=== PATIENT | female | born 1970 | race American Indian/Alaskan Native ===

== ENCOUNTER 2018-01-01 05:06 | Emergency (ER) | payer MEDICARE ==
[2018-01-01 06:15] VITALS: BP 148/98
--- NOTE | 2018-01-01 06:54 | XRay Report ---
FINAL REPORT EXAM: XR CHEST ROUTINE 2V HISTORY: shortness of breath TECHNIQUE: PA and lateral views of the chest were submitted. FINDINGS: The heart is mildly enlarged. The thoracic aorta is mildly tortuous. The lungs are not congested. There are no localized infiltrates or effusions. The skeletal structures are well-maintained. IMPRESSION: Mild cardiomegaly. No acute process in the chest
[2018-01-01 07:30] LABS: BUN/Creatinine Ratio 17; Blood Urea Nitrogen 10 mg/dL (7-17); Calcium 8.7 mg/dL (8.4-10.2); Hemolysis Index 6
[2018-01-01 07:52] LABS: Basophils # (Auto) 0.1 K/mm3 (0.0-0.1); Basophils % (Auto) 1.4 % (0.0-1.8); Eosinophils # (Auto) 0.2 K/mm3 (0.0-0.4); Eosinophils % (Auto) 2.1 % (0.0-4.3); Hematocrit 33.9 % (30.3-42.9); Hemoglobin 11.1 gm/dl (10.1-14.3); Lymphocytes # (Auto) 1.4 K/mm3 (1.2-5.4); Lymphocytes % (Auto) 17.2 % (13.4-35.0); Mean Corpuscular HGB Conc 33 % (30-34); Mean Corpuscular Hemoglobin 26 pg (28-32); Mean Corpuscular Volume 80 fl (79-97); Monocytes % (Auto) 12.1 % (0.0-7.3); Platelet Count 367 K/mm3 (140-440); Red Blood Count 4.25 M/mm3 (3.65-5.03); Red Cell Distribution Width 16.5 % (13.2-15.2)
== END 2018-01-01 11:05 | disposition left against medical advice (07) ==
LOC: ED 05:06
DX: R07.9 Chest pain, unspecified (principal); Z53.21 Procedure and treatment not carried out due to patient leaving prior to being seen by health care provider
CPT/HCPCS: 36415; 71046; 80048; 84484; 85025; 93005; 93010

== ENCOUNTER 2019-09-30 09:49 | Outpatient (CLI) | payer OTHER ==
--- NOTE | 2019-09-30 11:27 | XRay Report ---
LUMBOSACRAL SPINE, 3 VIEWS INDICATION: RIGHT SIDED WEAKNESS,CONGESTIVE HEART FAILURE. COMPARISON: None. IMPRESSION: Normal alignment and bone mineralization. Mild discogenic disc disease and facet arthro keron are noted at L3-4, L4-5 and L5-S1. The sacrum and SI joints are unremarkable. No acute osseous or soft tissue abnormality. Signer Name: Desmond Alexandra Jr, MD Signed: 09/30/2019 11:23 AM Workstation Name: [id number]
== END 2019-09-30 09:50 | disposition home or self-care (01) ==
LOC: XRAY 09:49
PROVIDERS: ATTEND Internal Medicine
DX: M51.86 Other intervertebral disc disorders, lumbar region (principal); R53.1 Weakness; G43.909 Migraine, unspecified, not intractable, without status migrainosus; I11.0 Hypertensive heart disease with heart failure; I50.9 Heart failure, unspecified; I25.10 Atherosclerotic heart disease of native coronary artery without angina pectoris; Z98.890 Other specified postprocedural states; Z98.51 Tubal ligation status; G62.9 Polyneuropathy, unspecified
CPT/HCPCS: 72100

== ENCOUNTER 2019-12-07 17:29 | Observation (INO) | payer MEDICARE ==
--- NOTE | 2019-12-07 17:56 | Event Note ---
ED Screening Note Date of service: 12/07/19 Time: 17:53 ED Screening Note: 49 y/o female comes for SOB, Chest pain. Patient reports that she started with right leg swelling and pain was seen by her PCP and was started on lasix no decreased in swelling. And now having CP and SOB. History of CAD, CHF, CVA times 2. This initial assessment/diagnostic orders/clinical plan/treatment(s) is/are subject to change based on patients health status, clinical progression and re- assessment by fellow clinical providers in the ED. Further treatment and workup at subsequent clinical providers discretion. Patient/guardian urged not to elope from the ED as their condition may be serious if not clinically assessed and managed. Initial orders include:
[2019-12-07 18:44] LABS: Basophils # (Auto) 0.1 K/mm3 (0.0-0.1); Eosinophils # (Auto) 0.2 K/mm3 (0.0-0.4); Eosinophils % (Auto) 1.6 % (0.0-4.3); Hematocrit 39.2 % (30.3-42.9); Lymphocytes # (Auto) 2.5 K/mm3 (1.2-5.4); Lymphocytes % (Auto) 26.4 % (13.4-35.0); Mean Corpuscular HGB Conc 33 % (30-34); Mean Corpuscular Volume 88 fl (79-97); Monocytes # (Auto) 1.2 K/mm3 (0.0-0.8); Monocytes % (Auto) 12.3 % (0.0-7.3); Platelet Count 354 K/mm3 (140-440); Red Blood Count 4.44 M/mm3 (3.65-5.03); Red Cell Distribution Width 13.7 % (13.2-15.2)
[2019-12-07] MEDS ORDERED: traMADol 50 MG TAB PO ONE (18:46)
--- NOTE | 2019-12-07 18:51 | XRay Report ---
CHEST 1 VIEW INDICATION / CLINICAL INFORMATION: MAIN: chest pain sob since this evening. COMPARISON: 03/14/2008 FINDINGS: SUPPORT DEVICES: None. HEART / MEDIASTINUM: No significant abnormality. LUNGS / PLEURA: No significant pulmonary or pleural abnormality. No pneumothorax. No interstitial pul monary edema. ADDITIONAL FINDINGS: No significant additional findings. IMPRESSION: 1. No acute findings. No interval change. Signer Name: Livier Rivas MD Signed: 12/07/2019 6:47 PM Workstation Name: [id number]
[2019-12-07 19:08] LABS: Alanine Aminotransferase 19 units/L (7-56); Albumin 4.1 g/dL (3.9-5); BUN/Creatinine Ratio 10; Blood Urea Nitrogen 8 mg/dL (7-17); Calcium 9.4 mg/dL (8.4-10.2); Hemolysis Index 24
--- NOTE | 2019-12-07 19:14 | Emergency Department Report ---
ED Chest Pain HPI - General Chief Complaint: Chest Pain Stated Complaint: CHEST PAIN/RT LEG NUMBNESS Time Seen by Provider: 12/07/19 17:48 Source: patient Mode of arrival: Ambulatory Limitations: No Limitations - History of Present Illness Initial Comments: 49-year-old female presents to the emergency department with complaint of some pain just under her left breast in the chest that has been going on since about 4 AM. It is associated with some shortness of breath that worsens with exertion, worsened with coughing, and she has orthopnea. The patient also complains of bilateral lower extremity swelling with right greater than left and she has pain in the right leg. The coughing has been going on for one month. The leg swelling is also been going on for the past month. She has a past medical history of CHF, CVA with right-sided residual weakness, migraine headaches, hypertension, neuropathy, and a history of DVT from this past summer. She has not currently on any blood thinners. Her box printer used to be Dr. Santoro and now she is being referred to a Dr. Ruben Birch. No recent travel or sick contacts at home. The patient has taken some sublingual nitroglycerin for her pain. She was recently taken off of a previous diuretic and was placed on Lasix. - Related Data Previous Rx's Medication Instructions Recorded Last Taken Type Losartan [Cozaar] 100 mg PO QDAY #30 tablet 10/26/14 Unknown Rx Metoprolol [Lopressor TAB] 75 mg PO BID #60 tablet 10/26/14 Unknown Rx Sennosides [Senna Lax] 8.6 mg PO DAILY PRN #14 tablet 10/26/14 Unknown Rx amLODIPine 10 mg PO DAILY #30 tablet 10/26/14 Unknown Rx hydrALAZINE [Apresoline TAB] 25 mg PO Q8HR #90 tablet 10/26/14 Unknown Rx oxyCODONE /ACETAMINOPHEN [Percocet 2 tab PO Q6H PRN #20 tablet 10/26/14 Unknown Rx 5/325 mg] Allergies Allergy/AdvReac Type Severity Reaction Status Date / Time hydrocodone Allergy Unknown Verified 10/15/14 19:18 Heart Score - HEART Score History: Moderately suspicious EKG: Normal Age: 45-65 Risk factors: > 3 risk factors or hx of atherosclerotic disease Troponin: < normal limit HEART Score: 4 - Critical Actions Critical Actions: 4-6 pts:12-16.6% risk of adverse cardiac event. Should be admitted ED Review of Systems ROS: Stated complaint: CHEST PAIN/RT LEG NUMBNESS Other details as noted in HPI Comment: All other systems reviewed and negative Constitutional: denies: chills, fever Eyes: denies: eye pain, vision change ENT: denies: ear pain, throat pain Respiratory: cough, orthopnea, shortness of breath, SOB with exertion Cardiovascular: chest pain, edema Gastrointestinal: denies: abdominal pain, vomiting Genitourinary: denies: dysuria, discharge Musculoskeletal: arthralgia, myalgia. denies: back pain Skin: denies: rash, lesions Neurological: denies: headache, weakness ED Past Medical Hx - Past Medical History Previous Medical History?: Yes Hx Hypertension: Yes Hx CVA: Yes (x2) Hx Heart Attack/AMI: No Hx Congestive Heart Failure: Yes Hx Diabetes: No Hx Liver Disease: No Hx Renal Disease: No Hx Sickle Cell Disease: No Hx Headaches / Migraines: Yes Hx Seizures: No Hx Psychiatric Treatment: Yes (depression) Hx Asthma: No Hx COPD: No Additional medical history: Neuropathy - Surgical History Additional Surgical History: Spinal Stenosis - Social History Smoking Status: Never Smoker Substance Use Type: None - Medications Home Medications: Home Medications Medication Instructions Recorded Confirmed Last Taken Type Losartan [Cozaar] 100 mg PO QDAY #30 tablet 10/26/14 Unknown Rx Metoprolol [Lopressor TAB] 75 mg PO BID #60 tablet 10/26/14 Unknown Rx Sennosides [Senna Lax] 8.6 mg PO DAILY PRN #14 tablet 10/26/14 Unknown Rx amLODIPine 10 mg PO DAILY #30 tablet 10/26/14 Unknown Rx hydrALAZINE [Apresoline TAB] 25 mg PO Q8HR #90 tablet 10/26/14 Unknown Rx oxyCODONE /ACETAMINOPHEN [Percocet 2 tab PO Q6H PRN #20 tablet 10/26/14 Unknown Rx 5/325 mg] ED Physical Exam - General Limitations: No Limitations - Other Other exam information: GENERAL: The patient is well-developed well-nourished. HEENT: Normocephalic. Atraumatic. Patient has moist mucous membranes. EYES: Extraocular motions are intact. NECK: Supple. Trachea is midline. CHEST/LUNGS: Clear to auscultation. There is no respiratory distress noted. HEART/CARDIOVASCULAR: Regular. There is no tachycardia. There is no murmur. ABDOMEN: Abdomen is soft, nontender. Patient has normal bowel sounds. There is no abdominal distention. SKIN:Skin is warm and dry. 2+ pitting edema to the bilateral lower extremities. NEURO: The patient is awake, alert, and oriented. The patient is cooperative. The patient has no focal neurologic deficits. Normal speech. MUSCULOSKELETAL: There is reproducible tenderness to palpation to the right lower leg. There is no limitation range of motion. ED Course Vital Signs 12/07/19 12/07/19 12/07/19 18:08 18:15 18:30 Pulse Rate 100 H 95 H Respiratory 23 19 Rate Blood Pressure 136/89 136/89 O2 Sat by Pulse 96 97 97 Oximetry 12/07/19 12/07/19 12/07/19 18:46 19:00 19:16 Pulse Rate 91 H 85 81 Respiratory 21 19 17 Rate Blood Pressure 136/89 136/89 136/89 O2 Sat by Pulse 97 98 99 Oximetry 12/07/19 12/07/19 12/07/19 19:30 19:34 19:45 Pulse Rate 88 92 H Respiratory 34 H 20 14 Rate Blood Pressure 134/85 149/74 O2 Sat by Pulse 96 99 96 Oximetry 12/07/19 12/07/19 12/07/19 20:00 20:15 20:30 Pulse Rate 90 82 79 Respiratory 18 17 21 Rate Blood Pressure 135/82 153/81 127/73 O2 Sat by Pulse 99 99 98 Oximetry 12/07/19 12/07/19 12/07/19 20:46 21:00 21:15 Pulse Rate 90 78 93 H Respiratory 18 20 19 Rate Blood Pressure 153/81 120/64 120/64 O2 Sat by Pulse 100 98 100 Oximetry 12/07/19 12/07/19 12/07/19 21:31 21:45 22:01 Pulse Rate 75 81 74 Respiratory 19 17 18 Rate Blood Pressure 120/64 120/64 120/64 O2 Sat by Pulse 100 100 100 Oximetry 12/07/19 12/07/19 12/07/19 22:15 22:31 22:45 Pulse Rate 75 78 68 Respiratory 17 15 19 Rate Blood Pressure 120/64 120/64 120/64 O2 Sat by Pulse 99 99 100 Oximetry ERICH score - Erich Score Age > 65: (0) No Aspirin use within the Past 7 Days: (0) No 3 or more CAD Risk Factors: (1) Yes 2 or more Angina events in past 24 hrs: (1) Yes Known CAD with more than 50% Stenosis: (0) No Elevated Cardiac Markers: (0) No ST Deviation Greater than 0.5mm: (0) No ERICH Score: 2 ED Medical Decision Making - Lab Data Result diagrams: 12/07/19 18:25 12/07/19 18:25 - EKG Data -: EKG Interpreted by Me EKG shows normal: sinus rhythm, axis, intervals, QRS complexes, ST-T waves Rate: normal - EKG Data When compared to previous EKG there are: no significant change Interpretation: unchanged when compared t (01/01/18) - Radiology Data Radiology results: report reviewed, image reviewed interpreted by me: Chest x-ray does not show any pleural effusions, pneumonia, pneumothorax, focal consolidation, or any other acute process. CTA CHEST WITH IV CONTRAST INDICATION: CP, elevated dimer. TECHNIQUE: Axial CT images were obtained through the chest after injection of 100 cc Omnipaque 350 IV contrast. 3 plane MIP reconstructions were produced. All CT scans at this location are performed using CT dose reduction for ALARA by means of automated exposure control. COMPARISON: None available. FINDINGS: Exam is slightly degraded by respiratory motion artifact. PULMONARY ARTERIES: No pulmonary emboli. THORACIC AORTA: No acute abnormality. HEART: Normal. CORONARY ARTERIES: No significant calcification. PLEURA: No pleural effusion. No pneumothorax. LYMPH NODES: No significant adenopathy. LUNGS: No acute air space or interstitial disease. ADDITIONAL FINDINGS: None. UPPER ABDOMEN: No acute findings. SKELETAL STRUCTURES: No significant osseous abnormality. IMPRESSION: 1. No CT evidence for pulmonary embolism. 2. No acute findings. - Medical Decision Making This patient presents to the emergency department with some left-sided chest pain that started since 4 AM this morning. She has some shortness of breath, lower extremity swelling with right greater than left and some right lower extremity pain with a history of DVT. The patients labs have been mostly unremarkable except for an elevated and equivocal D-Dimer at about 450. She has a CT angiography of the chest that did not show any PE, dissection or any acute process. She already took multiple SL Nitro prior to arrival and in the ED. Given tramadol and then low dose Morphine without much improvement. The CT angiography of the chest was negative but the patient continues to have some right leg pain with a history of DVT. She was given a dose of Eliquis and a venous Ultrasound was ordered for the morning. The patient will be admitted to the hospital for further evaluation and was accepted for admission by the hospitalist, Dr. Goel. - Differential Diagnosis DVT, PE, [place], CHF Critical Care Time: No Critical care attestation.: If time is entered above; I have spent that time in minutes in the direct care of this critically ill patient, excluding procedure time. ED Disposition Clinical Impression: Acute chest pain, Bilateral lower extremity edema, Right leg pain, History of DVT (deep vein thrombosis) Dyspnea Qualifiers: Dyspnea type: shortness of breath Qualified Code(s): R06.02 - Shortness of breath; R06.00 - Dyspnea, unspecified; R06.01 - Orthopnea Disposition: OP ADMIT IP TO THIS HOSP Is pt being admited?: Yes Condition: Fair Time of Disposition: 23:44
--- NOTE | 2019-12-07 21:11 | Cat Scan Report ---
CTA CHEST WITH IV CONTRAST INDICATION: CP, elevated dimer. TECHNIQUE: Axial CT images were obtained through the chest after injection of 100 cc Omnipaque 350 IV contrast. 3 plane MIP reconstructions were produced. All CT scans at this location are performed using CT dose reduction for ALARA by means of automated exposure control. COMPARISON: None available. FINDINGS: Exam is slightly degraded by respiratory motion artifact. PULMONARY ARTERIES: No pulmonary emboli. THORACIC AORTA: No acute abnormality. HEART: Normal. CORONARY ARTERIES: No significant calcification. PLEURA: No pleural effusion. No pneumothorax. LYMPH NODES: No significant adenopathy. LUNGS: No acute air space or interstitial disease. ADDITIONAL FINDINGS: None. UPPER ABDOMEN: No acute findings. SKELETAL STRUCTURES: No significant osseous abnormality. IMPRESSION: 1. No CT evidence for pulmonary embolism. 2. No acute findings. Signer Name: Byron Gross MD Signed: 12/07/2019 9:07 PM Workstation Name: [id number]
[2019-12-07] MEDS ORDERED: APIXABAN 5 MG TAB PO ONE (21:36)
[2019-12-07] MEDS ORDERED: MORPHINE 4 MG/1 ML INJ IV ONE (21:37)
[2019-12-07] MEDS ORDERED: ONDANSETRON 4 MG/2 ML INJ IV ONE (21:38)
[2019-12-08] MEDS ORDERED: NITROGLYCERIN 0.4 MG TAB SUBL SL PRN (00:39)
[2019-12-08] MEDS ORDERED: ONDANSETRON 4 MG/2 ML INJ IV PRN (00:39)
[2019-12-08] MEDS ORDERED: FUROSEMIDE 20 MG TAB PO ONE (02:00)
[2019-12-08] MEDS ORDERED: FUROSEMIDE 40 MG/4 ML INJ IV SCH (06:00)
[2019-12-08 07:27] LABS: Basophils # (Auto) 0.1 K/mm3 (0.0-0.1); Basophils % (Auto) 1.3 % (0.0-1.8); Eosinophils # (Auto) 0.2 K/mm3 (0.0-0.4); Eosinophils % (Auto) 2.9 % (0.0-4.3); Hematocrit 37.7 % (30.3-42.9); Hemoglobin 12.5 gm/dl (10.1-14.3); Lymphocytes % (Auto) 27.8 % (13.4-35.0); Mean Corpuscular HGB Conc 33 % (30-34); Mean Corpuscular Volume 89 fl (79-97); Monocytes # (Auto) 0.8 K/mm3 (0.0-0.8); Platelet Count 353 K/mm3 (140-440); Red Blood Count 4.26 M/mm3 (3.65-5.03)
--- NOTE | 2019-12-08 07:48 | History and Physical Report ---
History of Present Illness Date of examination: 12/07/19 Date of admission: 12/07/19 22:11 Chief complaint: Chest pain History of present illness: Patient is a 49-year-old female with known history of coronary artery disease, hypertension, CHF, history of CVA with some residual right-sided weakness presenting to the emergency room today complaining of chest pain. Pain is said to be intermittent and located towards the left side of her chest. No known relieving factor. There has been no radiation. She has associated shortness of breath which is worse on minimal exertion. Patient Gamal that she has been having progressive swelling of her lower extremities right more than the left. She also indicates that she has had a history of DVTs in the past. She has been following up with a regulatory services consultant and also indicates that she was taken off her diuretic medication and placed on Lasix recently. Evaluation in the emergency room including CT angiogram has been unremarkable however ultrasound Doppler of the lower extremities still pending. Past History Past Medical History: heart failure, hypertension, stroke, other (History of neuropathy) Past Surgical History: Other (Surgery for spinal stenosis) Social history: no significant social history Family history: no significant family history Medications and Allergies Allergies Allergy/AdvReac Type Severity Reaction Status Date / Time hydrocodone Allergy Unknown Verified 10/15/14 19:18 Home Medications Medication Instructions Recorded Confirmed Last Taken Type Losartan [Cozaar] 100 mg PO QDAY #30 tablet 10/26/14 12/08/19 2 Days Ago Rx ~12/06/19 Metoprolol [Lopressor TAB] 75 mg PO BID #60 tablet 10/26/14 12/08/19 1 Day Ago Rx ~12/07/19 Sennosides [Senna Lax] 8.6 mg PO DAILY PRN #14 tablet 10/26/14 12/08/19 2 Days Ago Rx ~12/06/19 amLODIPine 10 mg PO DAILY #30 tablet 10/26/14 12/08/19 2 Days Ago Rx ~12/06/19 hydrALAZINE [Apresoline TAB] 25 mg PO Q8HR #90 tablet 10/26/14 12/08/19 2 Days Ago Rx ~12/06/19 oxyCODONE /ACETAMINOPHEN [Percocet 2 tab PO Q6H PRN #20 tablet 10/26/14 12/08/19 2 Days Ago Rx 5/325 mg] ~12/06/19 Active Meds: Active Medications Acetaminophen (Tylenol) 650 mg PO Q4H PRN PRN Reason: Pain MILD(1-3)/Fever >100.5/DÍAZ Aspirin (Ecotrin) 325 mg PO QDAY [facility] Furosemide (Lasix) 40 mg IV 0600,1800 [facility] Last Admin: 12/08/19 05:57 Dose: 40 mg Documented by: Nitroglycerin (Nitrostat) 0.4 mg SL Q5M PRN PRN Reason: Chest Pain Ondansetron HCl (Zofran) 4 mg IV Q8H PRN PRN Reason: Nausea And Vomiting Sodium Chloride (Sodium Chloride Flush Syringe 10 Ml) 10 ml IV BID CAMILO Sodium Chloride (Sodium Chloride Flush Syringe 10 Ml) 10 ml IV PRN PRN PRN Reason: LINE FLUSH Review of Systems Constitutional: no fever, no chills, no weakness Cardiovascular: chest pain, no palpitations Respiratory: shortness of breath Gastrointestinal: no abdominal pain, no nausea, no vomiting Genitourinary Female: no dysuria, no urinary frequency, no hematuria Musculoskeletal: no neck pain Integumentary: no rash, no pruritis Neurological: headaches, no weakness, no numbness Psychiatric: no anxiety, no disorientation Exam - Constitutional Vitals: Temp Pulse Resp BP Pulse Ox 97.6 F 71 16 124/75 99 12/08/19 04:26 12/08/19 04:26 12/08/19 04:26 12/08/19 04:26 12/08/19 04:26 General appearance: Present: no acute distress, well-nourished - EENT Eyes: Present: PERRL, EOM intact ENT: hearing intact, clear oral mucosa, dentition normal - Neck Neck: Present: supple, normal ROM - Respiratory Respiratory: bilateral: CTA - Cardiovascular Rhythm: regular Heart Sounds: Present: S1 & S2 - Extremities Extremities: no ischemia Extremity abnormal: edema (1+ bilateral ankle edema) Peripheral Pulses: within normal limits - Abdominal General gastrointestinal: Present: soft, non-tender, non-distended, normal bowel sounds - Integumentary Integumentary: Present: clear, warm, dry - Musculoskeletal Musculoskeletal: strength equal bilaterally - Psychiatric Psychiatric: appropriate mood/affect, intact judgment & insight, cooperative - Neurologic Neurologic: CNII-XII intact, moves all extremities Results - Labs CBC & Chem 7: 12/07/19 18:25 12/07/19 18:25 Labs: Abnormal lab results 12/07/19 12/07/19 12/07/19 Range/Units 18:25 18:25 18:58 Gordon % (Auto) 12.3 H (0.0-7.3) % Gordon # 1.2 H (0.0-0.8) K/mm3 D-Dimer 447.49 H (0-234) ng/mlDDU Carbon Dioxide 20 L (22-30) mmol/L Glucose 104 H (65-100) mg/dL Total Protein 8.4 H (6.3-8.2) g/dL 12/08/19 Range/Units 06:46 Gordon % (Auto) 11.0 H (0.0-7.3) % Gordon # (0.0-0.8) K/mm3 D-Dimer (0-234) ng/mlDDU Carbon Dioxide (22-30) mmol/L Glucose (65-100) mg/dL Total Protein (6.3-8.2) g/dL Assessment and Plan - Patient Problems (1) Chest pain Current Visit: No Status: Acute Plan to address problem: Patient is placed on telemetry and we will check serial cardiac enzymes. She will placed on daily aspirin sublingual nitroglycerin and IV morphine as needed for chest pain. Consult will be placed to cardiology for further evaluation. (2) Type II diabetes mellitus Current Visit: No Status: Acute Plan to address problem: Resume routine home medications and monitor Accu-Cheks. (3) Bilateral lower extremity edema Current Visit: Yes Status: Acute Plan to address problem: Possibly secondary to history of CHF. Patient has been placed on diuretics. Will monitor input, output and also monitor daily weight. Patient to be scheduled for echocardiogram. (4) History of DVT (deep vein thrombosis) Current Visit: Yes Status: Acute Plan to address problem: Patient placed on anticoagulation. Once ultrasound of the lower extremities. (5) Full code status Current Visit: Yes Status: Acute
[2019-12-08 07:49] LABS: BUN/Creatinine Ratio 15; Blood Urea Nitrogen 9 mg/dL (7-17); Hemolysis Index 172
--- NOTE | 2019-12-08 09:34 | Consultation ---
History of Present Illness Consult reason: congestive heart failure History of present illness: 49 year old female who is presenting with shortness of breath. She denies any chest pain. ER evaluation included a chest x-ray which showed no acute pulmonary edema CTA of the chest showed no pulmonary embolism. Past History Past Medical History: heart failure, hypertension, stroke, other (History of neuropathy) Past Surgical History: Other (Surgery for spinal stenosis) Social history: no significant social history Family history: no significant family history Medications and Allergies Allergies Allergy/AdvReac Type Severity Reaction Status Date / Time hydrocodone Allergy Unknown Verified 10/15/14 19:18 Home Medications Medication Instructions Recorded Confirmed Last Taken Type Losartan [Cozaar] 100 mg PO QDAY #30 tablet 10/26/14 12/08/19 2 Days Ago Rx ~12/06/19 Metoprolol [Lopressor TAB] 75 mg PO BID #60 tablet 10/26/14 12/08/19 1 Day Ago Rx ~12/07/19 Sennosides [Senna Lax] 8.6 mg PO DAILY PRN #14 tablet 10/26/14 12/08/19 2 Days Ago Rx ~12/06/19 amLODIPine 10 mg PO DAILY #30 tablet 10/26/14 12/08/19 2 Days Ago Rx ~12/06/19 hydrALAZINE [Apresoline TAB] 25 mg PO Q8HR #90 tablet 10/26/14 12/08/19 2 Days Ago Rx ~12/06/19 oxyCODONE /ACETAMINOPHEN [Percocet 2 tab PO Q6H PRN #20 tablet 10/26/14 12/08/19 2 Days Ago Rx 5/325 mg] ~12/06/19 Active Meds: Active Medications Acetaminophen (Tylenol) 650 mg PO Q4H PRN PRN Reason: Pain MILD(1-3)/Fever >100.5/DÍAZ Aspirin (Ecotrin) 325 mg PO QDAY [facility] Furosemide (Lasix) 40 mg IV 0600,1800 [facility] Last Admin: 12/08/19 05:57 Dose: 40 mg Documented by: Nitroglycerin (Nitrostat) 0.4 mg SL Q5M PRN PRN Reason: Chest Pain Ondansetron HCl (Zofran) 4 mg IV Q8H PRN PRN Reason: Nausea And Vomiting Sodium Chloride (Sodium Chloride Flush Syringe 10 Ml) 10 ml IV BID CAMILO Sodium Chloride (Sodium Chloride Flush Syringe 10 Ml) 10 ml IV PRN PRN PRN Reason: LINE FLUSH Review of Systems Constitutional: no weight loss, no weight gain, no fatigue, no weakness Ears, nose, mouth and throat: no deferred, no ear pain, no ear discharge, no tinnitis Cardiovascular: no chest pain, no orthopnea, no palpitations, no rapid/irregular heart beat, no edema Respiratory: no cough, no cough with sputum, no excessive sputum, no congestion, no wheezing, no pleurisy Gastrointestinal: no abdominal pain, no nausea, no vomiting, no diarrhea Genitourinary Female: no dyspareunia, no dysmenorrhea, no pelvic pain, no flank pain, no menorrhagia Musculoskeletal: no neck stiffness, no neck pain, no shooting arm pain, no arm numbness/tingling, no low back pain Integumentary: no deferred, no rash, no pruritis, no redness, no sores Neurological: no head injury, no transient paralysis, no paralysis, no weakness Psychiatric: no anxiety Endocrine: no cold intolerance, no heat intolerance, no polyphagia, no excessive thirst Hematologic/Lymphatic: no easy bruising, no easy bleeding Allergic/Immunologic: no urticaria, no allergic rhinitis, no wheezing Physical Examination Vital Signs Pulse Ox 96 12/07/19 18:08 General appearance: no acute distress, well-nourished HEENT: Positive: PERRL, Mucus Membranes Moist Neck: Positive: neck supple, trachea midline Cardiac: Positive: Reg Rate and Rhythm, S1/S2. Negative: Audible Murmur Lungs: Positive: clear to auscultation, Normal Breath Sounds Neuro: Positive: Grossly Intact Abdomen: Positive: Soft, Active Bowel Sounds. Negative: Tender, Distended Female genitourinary: deferred Skin: Positive: Clear Incision: Cardiac Cath Site Musculoskeletal: No Pain, Normal Range of Motion Extremities: Present: normal. Absent: edema Results 12/08/19 06:46 12/08/19 06:46 Cardiac Enzymes 12/07/19 Range/Units 18:25 AST 19 (5-40) units/L CBC 12/07/19 12/08/19 Range/Units 18:25 06:46 WBC 9.4 7.3 (4.5-11.0) K/mm3 RBC 4.44 4.26 (3.65-5.03) M/mm3 Hgb 13.0 12.5 (10.1-14.3) gm/dl Hct 39.2 37.7 (30.3-42.9) % Plt Count 354 353 (140-440) K/mm3 Lymph # 2.5 2.0 (1.2-5.4) K/mm3 Meade # 1.2 H 0.8 (0.0-0.8) K/mm3 Eos # 0.2 0.2 (0.0-0.4) K/mm3 Baso # 0.1 0.1 (0.0-0.1) K/mm3 Comprehensive Metabolic Panel 12/07/19 12/08/19 Range/Units 18:25 06:46 Sodium 139 137 (137-145) mmol/L Potassium 3.7 4.6 D (3.6-5.0) mmol/L Chloride 102.2 100.7 (98-107) mmol/L Carbon Dioxide 20 L 19 L (22-30) mmol/L BUN 8 9 (7-17) mg/dL Creatinine 0.8 0.6 L (0.7-1.2) mg/dL Glucose 104 H 90 (65-100) mg/dL Calcium 9.4 9.0 (8.4-10.2) mg/dL AST 19 (5-40) units/L ALT 19 (7-56) units/L Alkaline Phosphatase 66 (35-129) units/L Total Protein 8.4 H (6.3-8.2) g/dL Albumin 4.1 (3.9-5) g/dL EKG interpretations - Telemetry EKG Rhythm: Sinus Rhythm - EKG Sinus rhythms and dysrhythmias: sinus rhythm Assessment and Plan 1. Coronary artery disease 2. History of CVA with right sided hemiparesis 3. Essential hypertension 4. 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 To continue home medication
--- NOTE | 2019-12-08 10:58 | Vascular Lab Report ---
DUPLEX DOPPLER LOWER EXTREMITY VEINS, BILATERAL INDICATION: LE pain and swelling, hx of DVT. TECHNIQUE: Duplex doppler imaging was performed through the veins of both lower extremities using venous gabby monty and other maneuvers. COMPARISON: None available. FINDINGS: Right Common Femoral vein: Negative. Right Superficial Femoral vein: Negative. Right Popliteal vein: Negative. Right Calf veins: Negative. Left Common Femoral vein: Negative. Left Superficial Femoral vein: Negative. Left Popliteal vein: Negative. Left Calf veins: Negative. Additional findings: None. IMPRESSION: 1. No sonographic evidence for DVT in either lower extremity. Signer Name: Livier Rivas MD Signed: 12/08/2019 10:53 AM Workstation Name: [id number]
[2019-12-08] MEDS: ACETAMINOPHEN 325 MG TAB PO PRN (12:02)
[2019-12-08] MEDS ORDERED: SENNOSIDES 8.6 MG TAB PO PRN (12:46)
--- NOTE | 2019-12-08 12:47 | Progress Note ---
Assessment and Plan Assessment and plan: Coronary artery disease. Cardiology following. Plans for [facility] tomorrow. Ischemic cardiomyopathy. As above. History of CVA with right-sided hemiparesis. PT/OT. Hypertension. Continue antihypertensive medications. History Interval history: Patient denies any chest pain currently Hospitalist Physical - Constitutional Vitals: Temp Pulse Resp BP Pulse Ox 97.1 F L 64 18 124/80 100 12/08/19 12:32 12/08/19 12:32 12/08/19 12:32 12/08/19 12:32 12/08/19 12:32 General appearance: Present: no acute distress, well-nourished - EENT Eyes: Present: PERRL, EOM intact ENT: hearing intact, clear oral mucosa, dentition normal - Neck Neck: Present: supple, normal ROM - Respiratory Respiratory effort: normal Respiratory: bilateral: CTA - Cardiovascular Rhythm: regular Heart Sounds: Present: S1 & S2. Absent: gallop, rub - Extremities Extremities: no ischemia, No edema, Full ROM - Abdominal General gastrointestinal: soft, non-tender, non-distended, normal bowel sounds - Integumentary Integumentary: Present: clear, warm, dry - Neurologic Neurologic: CNII-XII intact, moves all extremities Results - Labs CBC & Chem 7: 12/08/19 06:46 12/08/19 06:46 Labs: Laboratory Last Values WBC 7.3 K/mm3 (4.5-11.0) 12/08/19 06:46 RBC 4.26 M/mm3 (3.65-5.03) 12/08/19 06:46 Hgb 12.5 gm/dl (10.1-14.3) 12/08/19 06:46 Hct 37.7 % (30.3-42.9) 12/08/19 06:46 MCV 89 fl (79-97) 12/08/19 06:46 MCH 29 pg (28-32) 12/08/19 06:46 MCHC 33 % (30-34) 12/08/19 06:46 RDW 14.0 % (13.2-15.2) 12/08/19 06:46 Plt Count 353 K/mm3 (140-440) 12/08/19 06:46 Lymph % (Auto) 27.8 % (13.4-35.0) 12/08/19 06:46 [place] % (Auto) 11.0 % (0.0-7.3) H 12/08/19 06:46 Eos % (Auto) 2.9 % (0.0-4.3) 12/08/19 06:46 Baso % (Auto) 1.3 % (0.0-1.8) 12/08/19 06:46 Lymph # 2.0 K/mm3 (1.2-5.4) 12/08/19 06:46 [place] # 0.8 K/mm3 (0.0-0.8) 12/08/19 06:46 Eos # 0.2 K/mm3 (0.0-0.4) 12/08/19 06:46 Baso # 0.1 K/mm3 (0.0-0.1) 12/08/19 06:46 Seg Neutrophils % 57.0 % (40.0-70.0) 12/08/19 06:46 Seg Neutrophils # 4.2 K/mm3 (1.8-7.7) 12/08/19 06:46 D-Dimer 447.49 ng/mlDDU (0-234) H 12/07/19 18:58 Sodium 137 mmol/L (137-145) 12/08/19 06:46 Potassium 4.6 mmol/L (3.6-5.0) D 12/08/19 06:46 Chloride 100.7 mmol/L (98-107) 12/08/19 06:46 Carbon Dioxide 19 mmol/L (22-30) L 12/08/19 06:46 Anion Gap 22 mmol/L 12/08/19 06:46 BUN 9 mg/dL (7-17) 12/08/19 06:46 Creatinine 0.6 mg/dL (0.7-1.2) L 12/08/19 06:46 Estimated GFR > 60 ml/min 12/08/19 06:46 BUN/Creatinine Ratio 15 % 12/08/19 06:46 Glucose 90 mg/dL (65-100) 12/08/19 06:46 Calcium 9.0 mg/dL (8.4-10.2) 12/08/19 06:46 Total Bilirubin 0.40 mg/dL (0.1-1.2) 12/07/19 18:25 AST 19 units/L (5-40) 12/07/19 18:25 ALT 19 units/L (7-56) 12/07/19 18:25 Alkaline Phosphatase 66 units/L (35-129) 12/07/19 18:25 Troponin T < 0.010 ng/mL (0.00-0.029) 12/08/19 06:46 NT-Pro-B Natriuret Pep 40.55 pg/mL (0-450) 12/07/19 18:25 Total Protein 8.4 g/dL (6.3-8.2) H 12/07/19 18:25 Albumin 4.1 g/dL (3.9-5) 12/07/19 18:25 Albumin/Globulin Ratio 1.0 % 12/07/19 18:25 Active Medications - Current Medications Current Medications: Generic Name Dose Route Start Last Admin Trade Name Freq PRN Reason Stop Dose Admin Acetaminophen 650 mg 12/08/19 00:39 12/08/19 12:02 Tylenol PO 650 mg Q4H PRN Administration Pain MILD(1-3)/Fever >100.5/DÍAZ Aspirin 325 mg 12/09/19 10:00 Ecotrin PO QDAY CAMILO Furosemide 40 mg 12/08/19 06:00 12/08/19 05:57 Lasix IV 40 mg 0600,1800 CAMILO Administration Nitroglycerin 0.4 mg 12/08/19 00:39 Nitrostat SL Q5M PRN Chest Pain Ondansetron HCl 4 mg 12/08/19 00:39 Zofran IV Q8H PRN Nausea And Vomiting Sodium Chloride 10 ml 12/08/19 10:00 12/08/19 12:02 Sodium Chloride Flush Syringe 10 Ml IV 10 ml BID CAMILO Administration Sodium Chloride 10 ml 12/08/19 00:39 Sodium Chloride Flush Syringe 10 Ml IV PRN PRN LINE FLUSH
[2019-12-08] MEDS ORDERED: NON-FORMULARY EACH (Isosorbide Dinitrate 20 MG) PO SCH (14:00)
[2019-12-08] MEDS: hydrALAZINE 25 MG TAB PO SCH ×2 (15:07→22:05)
[2019-12-08] MEDS: ISOSORBIDE DINITRATE 20 MG TAB PO SCH ×2 (15:08→22:05)
[2019-12-08] MEDS: METOPROLOL TARTRATE 50 MG TAB PO SCH (22:10)
[2019-12-09] MEDS: ISOSORBIDE DINITRATE 20 MG TAB PO SCH ×3 (06:11→21:40)
[2019-12-09] MEDS: hydrALAZINE 25 MG TAB PO SCH ×3 (06:17→21:42)
[2019-12-09] MEDS: FUROSEMIDE 40 MG TAB PO SCH (06:18)
[2019-12-09 07:05] LABS: Hematocrit 36.5 % (30.3-42.9); Mean Corpuscular HGB Conc 33 % (30-34); Mean Corpuscular Volume 89 fl (79-97); Platelet Count 301 K/mm3 (140-440); Red Blood Count 4.13 M/mm3 (3.65-5.03)
[2019-12-09 07:18] LABS: INR 1.06 (0.87-1.13)
[2019-12-09 07:23] LABS: BUN/Creatinine Ratio 20; Blood Urea Nitrogen 10 mg/dL (7-17); Calcium 8.7 mg/dL (8.4-10.2); Hemolysis Index 29
--- NOTE | 2019-12-09 08:42 | Progress Note ---
<MARLA WATSON - Last Filed: 12/09/19 15:15> Assessment and Plan Atypical chest pain Shortness of breath CTA: no evidence of PE Hypertension HLP Normal LVEF 50-55% by echo this admission. [facility] 12/2017: no significant CAD, EF well preserved. Recommendations: GI evaluation for non-cardiac chest pain. Pulmonary consultation for continued shortness of breath. No further cardiac workup indicated. We will sign off. Subjective Date of service: 12/09/19 Interval history: Patient denies chest pain. Reports continued shortness of breath on minimal exertion. Patient reports recent negative cardiac cath at [place] in September. Objective Vital Signs Temp Pulse Pulse Resp BP Pulse Ox 12/09/19 08:13 100 12/09/19 06:17 64 129/77 12/09/19 06:11 64 129/77 12/09/19 03:52 97.7 F 59 L 19 129/77 98 12/09/19 00:08 97 12/08/19 22:45 63 18 98 12/08/19 22:10 63 113/73 12/08/19 22:05 63 113/73 12/08/19 22:00 98.5 F 70 18 125/71 99 12/08/19 21:24 98 12/08/19 19:40 98.2 F 63 16 113/73 98 12/08/19 19:37 69 12/08/19 17:00 68 12/08/19 15:08 58 L 109/70 12/08/19 12:32 97.1 F L 64 18 124/80 100 12/08/19 12:02 16 12/08/19 11:43 16 96 12/08/19 09:11 97.4 F L 69 18 133/86 99 12/08/19 09:00 63 - Physical Examination General: No Apparent Distress HEENT: Positive: PERRL Neck: Positive: neck supple, trachea midline Cardiac: Positive: Reg Rate and Rhythm Lungs: Positive: Normal Breath Sounds Neuro: Positive: Grossly Intact Abdomen: Positive: Soft, Active Bowel Sounds Extremities: Absent: edema - Labs and Meds Coagulation 12/09/19 Range/Units 06:38 PT 13.9 (12.2-14.9) Sec. INR 1.06 (0.87-1.13) CBC 12/09/19 Range/Units 06:38 WBC 6.8 (4.5-11.0) K/mm3 RBC 4.13 (3.65-5.03) M/mm3 Hgb 12.0 (10.1-14.3) gm/dl Hct 36.5 (30.3-42.9) % Plt Count 301 (140-440) K/mm3 Comprehensive Metabolic Panel 12/09/19 Range/Units 06:38 Sodium 139 (137-145) mmol/L Potassium 3.8 (3.6-5.0) mmol/L Chloride 102.1 (98-107) mmol/L Carbon Dioxide 24 (22-30) mmol/L BUN 10 (7-17) mg/dL Creatinine 0.5 L (0.7-1.2) mg/dL Glucose 97 (65-100) mg/dL Calcium 8.7 (8.4-10.2) mg/dL - EKG Sinus rhythms and dysrhythmias: sinus rhythm <BENSON LAINEZ - Last Filed: 12/10/19 09:31> Assessment and Plan I've seen and evaluated the patient and agree with the assessment and plan. Patient has normal ejection fraction of 55% by echocardiogram. Patient had a left heart catheterization in December 2017 that showed no significant coronary artery disease. At this time recommend further evaluation by gastroenterology and pulmonology for evaluation of chest pain or shortness of breath. No further cardiac recommendations at this time. please reconsult as needed. Objective Vital Signs Temp Pulse Pulse Resp BP Pulse Ox 12/10/19 09:25 69 126/72 12/10/19 09:23 69 126/72 12/10/19 09:22 69 126/72 12/10/19 09:05 97.8 F 69 18 126/72 97 12/10/19 06:19 70 112/73 12/10/19 06:18 60 112/73 12/10/19 03:25 98.0 F 62 18 112/73 99 12/10/19 00:41 98.4 F 64 18 101/62 100 12/09/19 22:11 99 12/09/19 22:00 66 70 18 99 12/09/19 21:42 71 142/86 12/09/19 21:41 71 142/86 12/09/19 21:40 71 142/86 12/09/19 19:30 98.1 F 68 18 142/86 99 12/09/19 17:52 65 12/09/19 16:22 98.4 F 64 18 114/65 99 12/09/19 11:08 67 120/77 12/09/19 11:07 67 120/77 12/09/19 11:06 71 120/77 12/09/19 10:00 67 3 L 97
[2019-12-09] MEDS: amLODIPine 10 MG TAB PO SCH (11:06)
[2019-12-09] MEDS: ASPIRIN EC 325 MG TAB PO SCH (11:06)
[2019-12-09] MEDS: POTASSIUM CHLORIDE ER 20 MEQ TAB PO SCH (11:07)
[2019-12-09] MEDS: METOPROLOL TARTRATE 50 MG TAB PO SCH ×2 (11:07→21:41)
[2019-12-09] MEDS: LOSARTAN 50 MG TAB PO SCH (11:08)
--- NOTE | 2019-12-09 13:14 | Progress Note ---
Assessment and Plan Assessment and plan: Chest pain. Await cardiology recommendation. Echocardiogram revealed LVEF that was normal at 50 to 55%. [facility] 12/2017: no significant CAD, EF well preserved. CTA of the chest negative. Right lower extremity leg pain. Bilateral lower extremity Dopplers negative for DVT. History of CVA with right-sided hemiparesis. PT/OT. Hypertension. Continue antihypertensive medications. History Interval history: Patient denies any chest pain currently Hospitalist Physical - Constitutional Vitals: Temp Pulse Resp BP Pulse Ox 98.3 F 67 18 120/77 100 12/09/19 07:35 12/09/19 11:08 12/09/19 07:35 12/09/19 11:08 12/09/19 08:13 General appearance: Present: no acute distress, well-nourished - EENT Eyes: Present: PERRL, EOM intact ENT: hearing intact, clear oral mucosa, dentition normal - Neck Neck: Present: supple, normal ROM - Respiratory Respiratory effort: normal Respiratory: bilateral: CTA - Cardiovascular Rhythm: regular Heart Sounds: Present: S1 & S2. Absent: gallop, rub - Extremities Extremities: no ischemia, No edema, Full ROM - Abdominal General gastrointestinal: soft, non-tender, non-distended, normal bowel sounds - Integumentary Integumentary: Present: clear, warm, dry - Neurologic Neurologic: CNII-XII intact, moves all extremities Results - Labs CBC & Chem 7: 12/09/19 06:38 12/09/19 06:38 Labs: Laboratory Last Values WBC 6.8 K/mm3 (4.5-11.0) 12/09/19 06:38 RBC 4.13 M/mm3 (3.65-5.03) 12/09/19 06:38 Hgb 12.0 gm/dl (10.1-14.3) 12/09/19 06:38 Hct 36.5 % (30.3-42.9) 12/09/19 06:38 MCV 89 fl (79-97) 12/09/19 06:38 MCH 29 pg (28-32) 12/09/19 06:38 MCHC 33 % (30-34) 12/09/19 06:38 RDW 14.0 % (13.2-15.2) 12/09/19 06:38 Plt Count 301 K/mm3 (140-440) 12/09/19 06:38 Lymph % (Auto) 27.8 % (13.4-35.0) 12/08/19 06:46 [place] % (Auto) 11.0 % (0.0-7.3) H 12/08/19 06:46 Eos % (Auto) 2.9 % (0.0-4.3) 12/08/19 06:46 Baso % (Auto) 1.3 % (0.0-1.8) 12/08/19 06:46 Lymph # 2.0 K/mm3 (1.2-5.4) 12/08/19 06:46 [place] # 0.8 K/mm3 (0.0-0.8) 12/08/19 06:46 Eos # 0.2 K/mm3 (0.0-0.4) 12/08/19 06:46 Baso # 0.1 K/mm3 (0.0-0.1) 12/08/19 06:46 Seg Neutrophils % 57.0 % (40.0-70.0) 12/08/19 06:46 Seg Neutrophils # 4.2 K/mm3 (1.8-7.7) 12/08/19 06:46 PT 13.9 Sec. (12.2-14.9) 12/09/19 06:38 INR 1.06 (0.87-1.13) 12/09/19 06:38 D-Dimer 447.49 ng/mlDDU (0-234) H 12/07/19 18:58 Sodium 139 mmol/L (137-145) 12/09/19 06:38 Potassium 3.8 mmol/L (3.6-5.0) 12/09/19 06:38 Chloride 102.1 mmol/L (98-107) 12/09/19 06:38 Carbon Dioxide 24 mmol/L (22-30) 12/09/19 06:38 Anion Gap 17 mmol/L 12/09/19 06:38 BUN 10 mg/dL (7-17) 12/09/19 06:38 Creatinine 0.5 mg/dL (0.7-1.2) L 12/09/19 06:38 Estimated GFR > 60 ml/min 12/09/19 06:38 BUN/Creatinine Ratio 20 % 12/09/19 06:38 Glucose 97 mg/dL (65-100) 12/09/19 06:38 POC Glucose 92 (70-105) 12/08/19 22:15 Calcium 8.7 mg/dL (8.4-10.2) 12/09/19 06:38 Total Bilirubin 0.40 mg/dL (0.1-1.2) 12/07/19 18:25 AST 19 units/L (5-40) 12/07/19 18:25 ALT 19 units/L (7-56) 12/07/19 18:25 Alkaline Phosphatase 66 units/L (35-129) 12/07/19 18:25 Troponin T < 0.010 ng/mL (0.00-0.029) 12/08/19 06:46 NT-Pro-B Natriuret Pep 40.55 pg/mL (0-450) 12/07/19 18:25 Total Protein 8.4 g/dL (6.3-8.2) H 12/07/19 18:25 Albumin 4.1 g/dL (3.9-5) 12/07/19 18:25 Albumin/Globulin Ratio 1.0 % 12/07/19 18:25 Active Medications - Current Medications Current Medications: Generic Name Dose Route Start Last Admin Trade Name Freq PRN Reason Stop Dose Admin Acetaminophen 650 mg 12/08/19 00:39 12/08/19 12:02 Tylenol PO 650 mg Q4H PRN Administration Pain MILD(1-3)/Fever >100.5/DÍAZ Amlodipine Besylate 10 mg 12/09/19 10:00 12/09/19 11:06 Amlodipine PO 10 mg DAILY CAMILO Administration Aspirin 325 mg 12/09/19 10:00 12/09/19 11:06 Ecotrin PO 325 mg QDAY CAMILO Administration Furosemide 40 mg 12/09/19 06:00 12/09/19 06:18 Lasix PO Not Given DAILY@0600 [facility] Hydralazine HCl 25 mg 12/08/19 14:00 12/09/19 06:17 Apresoline PO Not Given Q8HR [facility] Isosorbide Dinitrate 20 mg 12/08/19 14:00 12/09/19 06:11 Isordil Titradose PO 20 mg Q8HR CAMILO Administration Losartan Potassium 100 mg 12/09/19 10:00 12/09/19 11:08 Cozaar PO 50 mg QDAY CAMILO Administration Metoprolol Tartrate 75 mg 12/08/19 22:00 12/09/19 11:07 Metoprolol PO 75 mg BID CAIMLO Administration Nitroglycerin 0.4 mg 12/08/19 00:39 Nitrostat SL Q5M PRN Chest Pain Ondansetron HCl 4 mg 12/08/19 00:39 Zofran IV Q8H PRN Nausea And Vomiting Potassium Chloride 20 meq 12/09/19 10:00 12/09/19 11:07 K-Dur PO 20 meq QDAY CAMILO Administration Senna 8.6 mg 12/08/19 12:46 Senokot PO DAILY PRN Constipation Sodium Chloride 10 ml 12/08/19 10:00 12/09/19 11:13 Sodium Chloride Flush Syringe 10 Ml IV 10 ml BID CAMILO Administration Sodium Chloride 10 ml 12/08/19 00:39 Sodium Chloride Flush Syringe 10 Ml IV PRN PRN LINE FLUSH
[2019-12-09] MEDS: ACETAMINOPHEN 325 MG TAB PO PRN (21:42)
[2019-12-10] MEDS: FUROSEMIDE 40 MG TAB PO SCH (06:17)
[2019-12-10] MEDS: hydrALAZINE 25 MG TAB PO SCH ×3 (06:18→22:22)
[2019-12-10] MEDS: ISOSORBIDE DINITRATE 20 MG TAB PO SCH ×3 (06:19→22:21)
[2019-12-10] MEDS: amLODIPine 10 MG TAB PO SCH (09:22)
[2019-12-10] MEDS: LOSARTAN 50 MG TAB PO SCH (09:23)
[2019-12-10] MEDS: METOPROLOL TARTRATE 50 MG TAB PO SCH ×2 (09:25→22:22)
[2019-12-10] MEDS: POTASSIUM CHLORIDE ER 20 MEQ TAB PO SCH (09:25)
[2019-12-10] MEDS: ASPIRIN EC 325 MG TAB PO SCH (09:25)
[2019-12-10] MEDS ORDERED: PANTOPRAZOLE 40 MG INJ IV SCH (13:00)
--- NOTE | 2019-12-10 13:30 | XRay Report ---
CHEST 1 VIEW INDICATION: Shortness of breath. COMPARISON: 12/07/2019 FINDINGS: Support devices: None. Heart: Within normal limits. Lungs/Pleura: Mild streaky left basilar airspace disease with otherwise clear lungs. Additional findings: None. IMPRESSION: 1. Mild streaky left basilar airspace disease, likely at least in part representing atelectasis. Signer Name: Chuy Leyva MD Signed: 12/10/2019 1:25 PM Workstation Name: [id number]
--- NOTE | 2019-12-10 17:39 | Progress Note ---
Assessment and Plan Assessment and plan: Chest pain. Echocardiogram revealed LVEF that was normal at 50 to 55%. [facility] 12/2017: no significant CAD, EF well preserved. CTA of the chest negative. Evaluated by cardiology, non cardiac Shortness of breath, worse on exertion - etiology unclear Consult Pulmonology CXR unremarkable Right lower extremity leg pain. Bilateral lower extremity Dopplers negative for DVT. History of CVA with right-sided hemiparesis. PT/OT. Hypertension. Continue antihypertensive medications. Not discharged because still has shhortness of breath History Interval history: Chest pain Shortness of breath Hospitalist Physical - Physical exam Narrative exam: GEN: Not in acute distress, lying in bed HEENT: Normocephalic, atraumatic, Neck: supple, No JVD Lungs: Clear to auscultation bilaterally, no wheeze, heart;S1 and S2 reg, no murmurs Abd:soft, non tender, non distended, normal bowel sounds Ext: No edema, no clubbing, no cyanosis Neuro: AAO X 3, - Constitutional Vitals: Temp Pulse Resp BP Pulse Ox 98.3 F 67 18 131/84 100 12/10/19 16:30 12/10/19 16:30 12/10/19 16:30 12/10/19 16:30 12/10/19 16:30 General appearance: Present: no acute distress, obese ERICH score - Erich Score Age > 65: (0) No Aspirin use within the Past 7 Days: (0) No 3 or more CAD Risk Factors: (1) Yes 2 or more Angina events in past 24 hrs: (1) Yes Known CAD with more than 50% Stenosis: (0) No Elevated Cardiac Markers: (0) No ST Deviation Greater than 0.5mm: (0) No ERICH Score: 2 Results - Labs CBC & Chem 7: 12/09/19 06:38 12/09/19 06:38 Labs: Laboratory Last Values WBC 6.8 K/mm3 (4.5-11.0) 12/09/19 06:38 RBC 4.13 M/mm3 (3.65-5.03) 12/09/19 06:38 Hgb 12.0 gm/dl (10.1-14.3) 12/09/19 06:38 Hct 36.5 % (30.3-42.9) 12/09/19 06:38 MCV 89 fl (79-97) 12/09/19 06:38 MCH 29 pg (28-32) 12/09/19 06:38 MCHC 33 % (30-34) 12/09/19 06:38 RDW 14.0 % (13.2-15.2) 12/09/19 06:38 Plt Count 301 K/mm3 (140-440) 12/09/19 06:38 Lymph % (Auto) 27.8 % (13.4-35.0) 12/08/19 06:46 [place] % (Auto) 11.0 % (0.0-7.3) H 12/08/19 06:46 Eos % (Auto) 2.9 % (0.0-4.3) 12/08/19 06:46 Baso % (Auto) 1.3 % (0.0-1.8) 12/08/19 06:46 Lymph # 2.0 K/mm3 (1.2-5.4) 12/08/19 06:46 [place] # 0.8 K/mm3 (0.0-0.8) 12/08/19 06:46 Eos # 0.2 K/mm3 (0.0-0.4) 12/08/19 06:46 Baso # 0.1 K/mm3 (0.0-0.1) 12/08/19 06:46 Seg Neutrophils % 57.0 % (40.0-70.0) 12/08/19 06:46 Seg Neutrophils # 4.2 K/mm3 (1.8-7.7) 12/08/19 06:46 PT 13.9 Sec. (12.2-14.9) 12/09/19 06:38 INR 1.06 (0.87-1.13) 12/09/19 06:38 D-Dimer 447.49 ng/mlDDU (0-234) H 12/07/19 18:58 Sodium 139 mmol/L (137-145) 12/09/19 06:38 Potassium 3.8 mmol/L (3.6-5.0) 12/09/19 06:38 Chloride 102.1 mmol/L (98-107) 12/09/19 06:38 Carbon Dioxide 24 mmol/L (22-30) 12/09/19 06:38 Anion Gap 17 mmol/L 12/09/19 06:38 BUN 10 mg/dL (7-17) 12/09/19 06:38 Creatinine 0.5 mg/dL (0.7-1.2) L 12/09/19 06:38 Estimated GFR > 60 ml/min 12/09/19 06:38 BUN/Creatinine Ratio 20 % 12/09/19 06:38 Glucose 97 mg/dL (65-100) 12/09/19 06:38 POC Glucose 92 (70-105) 12/08/19 22:15 Calcium 8.7 mg/dL (8.4-10.2) 12/09/19 06:38 Total Bilirubin 0.40 mg/dL (0.1-1.2) 12/07/19 18:25 AST 19 units/L (5-40) 12/07/19 18:25 ALT 19 units/L (7-56) 12/07/19 18:25 Alkaline Phosphatase 66 units/L (35-129) 12/07/19 18:25 Troponin T < 0.010 ng/mL (0.00-0.029) 12/08/19 06:46 NT-Pro-B Natriuret Pep 40.55 pg/mL (0-450) 12/07/19 18:25 Total Protein 8.4 g/dL (6.3-8.2) H 12/07/19 18:25 Albumin 4.1 g/dL (3.9-5) 12/07/19 18:25 Albumin/Globulin Ratio 1.0 % 12/07/19 18:25 Active Medications - Current Medications Current Medications: Generic Name Dose Route Start Last Admin Trade Name Freq PRN Reason Stop Dose Admin Acetaminophen 650 mg 12/08/19 00:39 12/09/19 21:42 Tylenol PO 650 mg Q4H PRN Administration Pain MILD(1-3)/Fever >100.5/DÍAZ Amlodipine Besylate 10 mg 12/09/19 10:00 12/10/19 09:22 Amlodipine PO Not Given DAILY CAMILO Aspirin 325 mg 12/09/19 10:00 12/10/19 09:25 Ecotrin PO 325 mg QDAY CAMILO Administration Furosemide 40 mg 12/09/19 06:00 12/10/19 06:17 Lasix PO 40 mg DAILY@0600 CAMILO Administration Hydralazine HCl 25 mg 12/08/19 14:00 12/10/19 13:00 Apresoline PO Not Given Q8HR CAMILO Isosorbide Dinitrate 20 mg 12/08/19 14:00 12/10/19 13:10 Isordil Titradose PO 20 mg Q8HR CAMILO Administration Losartan Potassium 100 mg 12/09/19 10:00 12/10/19 09:23 Cozaar PO Not Given QDAY [facility] Metoprolol Tartrate 75 mg 12/08/19 22:00 12/10/19 09:25 Metoprolol PO 75 mg BID [facility] Administration Nitroglycerin 0.4 mg 12/08/19 00:39 Nitrostat SL Q5M PRN Chest Pain Ondansetron HCl 4 mg 12/08/19 00:39 Zofran IV Q8H PRN Nausea And Vomiting Pantoprazole Sodium 40 mg 12/10/19 13:00 12/10/19 13:32 Protonix IV 40 mg QDAY [facility] Administration Potassium Chloride 20 meq 12/09/19 10:00 12/10/19 09:25 K-Dur PO 20 meq QDAY [facility] Administration Senna 8.6 mg 12/08/19 12:46 12/09/19 21:48 Senokot PO 8.6 mg DAILY PRN Administration Constipation Sodium Chloride 10 ml 12/08/19 10:00 12/10/19 09:26 Sodium Chloride Flush Syringe 10 Ml IV 10 ml BID CAMILO Administration Sodium Chloride 10 ml 12/08/19 00:39 Sodium Chloride Flush Syringe 10 Ml IV PRN PRN LINE FLUSH
[2019-12-11] MEDS: FUROSEMIDE 40 MG TAB PO SCH (05:52)
[2019-12-11] MEDS: ISOSORBIDE DINITRATE 20 MG TAB PO SCH ×3 (05:55→21:03)
[2019-12-11] MEDS: hydrALAZINE 25 MG TAB PO SCH ×3 (05:57→21:04)
[2019-12-11] MEDS ORDERED: PANTOPRAZOLE 40 MG TAB PO SCH (10:00)
[2019-12-11] MEDS: ASPIRIN EC 325 MG TAB PO SCH (10:09)
[2019-12-11] MEDS: LOSARTAN 50 MG TAB PO SCH (10:12)
[2019-12-11] MEDS: METOPROLOL TARTRATE 50 MG TAB PO SCH ×2 (10:13→21:05)
[2019-12-11] MEDS: POTASSIUM CHLORIDE ER 20 MEQ TAB PO SCH (10:13)
[2019-12-11] MEDS: amLODIPine 10 MG TAB PO SCH (10:16)
[2019-12-11 12:43] LABS: ABG Base Excess 4.9 mmol/L (-2.0-3.0); ABG HCO3 29.3 mmol/L (20.0-26.0); ABG Methemoglobin 0.5 % (0.0-1.5); ABG PCO2 42.7 mm Hg; ABG PH 7.455 pH Units (7.350-7.450); ABG PO2 76.7 mm Hg (80.0-90.0)
--- NOTE | 2019-12-11 14:16 | Consultation ---
History of Present Illness Consult date: 12/11/19 Requesting physician: BENSON SURESH Reason for consult: dyspnea History of present illness: 49 y/o female admitted with chest pain. patient has known CHF but CXR does not appear to be volume overload. Per patient no breathing problems as a child but her and her twin sister were both premies. Her sister and daughters all have asthma and eczema. Per the patient she only has eczema. she also suffers from GERD and takes her meds daily but still drinks a good amount of caffeine. Remainder is negative. Past History Past Medical History: heart failure, hypertension, stroke, other (History of neuropathy) Past Surgical History: Other (Surgery for spinal stenosis) Social history: no significant social history Family history: no significant family history Medications and Allergies Allergies Allergy/AdvReac Type Severity Reaction Status Date / Time hydrocodone Allergy Unknown Verified 10/15/14 19:18 Home Medications Medication Instructions Recorded Confirmed Last Taken Type Losartan [Cozaar] 100 mg PO QDAY #30 tablet 10/26/14 12/08/19 2 Days Ago Rx ~12/06/19 Metoprolol [Lopressor TAB] 75 mg PO BID #60 tablet 10/26/14 12/08/19 1 Day Ago Rx ~12/07/19 Sennosides [Senna Lax] 8.6 mg PO DAILY PRN #14 tablet 10/26/14 12/08/19 2 Days Ago Rx ~12/06/19 amLODIPine 10 mg PO DAILY #30 tablet 10/26/14 12/08/19 2 Days Ago Rx ~12/06/19 hydrALAZINE [Apresoline TAB] 25 mg PO Q8HR #90 tablet 10/26/14 12/08/19 2 Days Ago Rx ~12/06/19 oxyCODONE /ACETAMINOPHEN [Percocet 2 tab PO Q6H PRN #20 tablet 10/26/14 12/08/19 2 Days Ago Rx 5/325 mg] ~12/06/19 Furosemide [Lasix TAB] 40 mg PO QDAY 12/08/19 12/08/19 12/07/19 09:00 History Isosorbide Dinitrate 20 mg PO TID 12/08/19 12/08/19 12/07/19 14:00 History Potassium Chloride [K-Dur] 20 meq PO QDAY 12/08/19 12/08/19 12/07/19 10:00 History Active Meds: Active Medications Acetaminophen (Tylenol) 650 mg PO Q4H PRN PRN Reason: Pain MILD(1-3)/Fever >100.5/DÍAZ Last Admin: 12/09/19 21:42 Dose: 650 mg Documented by: Amlodipine Besylate (Amlodipine) 10 mg PO DAILY [facility] Last Admin: 12/11/19 10:16 Dose: Not Given Documented by: Aspirin (Ecotrin) 325 mg PO QDAY [facility] Last Admin: 12/11/19 10:09 Dose: 325 mg Documented by: Furosemide (Lasix) 40 mg PO DAILY@0600 [facility] Last Admin: 12/11/19 05:52 Dose: 40 mg Documented by: Hydralazine HCl (Apresoline) 25 mg PO Q8HR [facility] Last Admin: 12/11/19 13:42 Dose: Not Given Documented by: Isosorbide Dinitrate (Isordil Titradose) 20 mg PO Q8HR [facility] Last Admin: 12/11/19 13:14 Dose: 20 mg Documented by: Losartan Potassium (Cozaar) 100 mg PO QDAY [facility] Last Admin: 12/11/19 10:12 Dose: 100 mg Documented by: Metoprolol Tartrate (Metoprolol) 75 mg PO BID [facility] Last Admin: 12/11/19 10:13 Dose: 75 mg Documented by: Nitroglycerin (Nitrostat) 0.4 mg SL Q5M PRN PRN Reason: Chest Pain Ondansetron HCl (Zofran) 4 mg IV Q8H PRN PRN Reason: Nausea And Vomiting Pantoprazole Sodium (Protonix) 40 mg PO BID [facility] Potassium Chloride (K-Dur) 20 meq PO QDAY [facility] Last Admin: 12/11/19 10:13 Dose: 20 meq Documented by: Senna (Senokot) 8.6 mg PO DAILY PRN PRN Reason: Constipation Last Admin: 12/09/19 21:48 Dose: 8.6 mg Documented by: Sodium Chloride (Sodium Chloride Flush Syringe 10 Ml) 10 ml IV BID [facility] Last Admin: 12/11/19 10:16 Dose: 10 ml Documented by: Sodium Chloride (Sodium Chloride Flush Syringe 10 Ml) 10 ml IV PRN PRN PRN Reason: LINE FLUSH Review of Systems All systems: negative Physical Examination Vital signs: Vital Signs Pulse Ox 96 12/07/19 18:08 General appearance: no acute distress, alert Eyes: non-icteric ENT: oropharynx moist Neck: supple, no lymphadenopathy Effort: normal Ascultation: Bilateral: diminished breath sounds (but no wheezing) Percussion: Bilateral: not dull Tactile fremitus: Bilateral: normal Cardiovascular: regular rate and rhythm Gastrointestinal: normoactive bowel sounds, soft Extremities: no cyanosis, no edema, pink and warm, pulses normal Results - Laboratory Findings CBC and BMP: 12/09/19 06:38 12/09/19 06:38 ABG ABG pH 7.455 pH Units (7.350-7.450) H 12/11/19 12:20 ABG pCO2 42.7 mm Hg 12/11/19 12:20 ABG pO2 76.7 mm Hg (80.0-90.0) L 12/11/19 12:20 ABG O2 Saturation 97.0 % (95.0-99.0) 12/11/19 12:20 PT/INR, D-dimer PT 13.9 Sec. (12.2-14.9) 12/09/19 06:38 INR 1.06 (0.87-1.13) 12/09/19 06:38 D-Dimer 447.49 ng/mlDDU (0-234) H 12/07/19 18:58 Abnormal lab findings: Abnormal Labs 12/07/19 12/07/19 12/07/19 18:25 18:25 18:58 [place] % (Auto) 12.3 H [place] # 1.2 H D-Dimer 447.49 H ABG pH ABG pO2 ABG HCO3 ABG Base Excess ABG Hemoglobin Carbon Dioxide 20 L Creatinine Glucose 104 H Total Protein 8.4 H 12/08/19 12/08/19 12/09/19 06:46 06:46 06:38 [place] % (Auto) 11.0 H [place] # D-Dimer ABG pH ABG pO2 ABG HCO3 ABG Base Excess ABG Hemoglobin Carbon Dioxide 19 L Creatinine 0.6 L 0.5 L Glucose Total Protein 12/11/19 12:20 [place] % (Auto) [place] # D-Dimer ABG pH 7.455 H ABG pO2 76.7 L ABG HCO3 29.3 H ABG Base Excess 4.9 H ABG Hemoglobin 8.9 L Carbon Dioxide Creatinine Glucose Total Protein - Diagnostic Findings Chest x-ray: image reviewed (clear CXR) Assessment and Plan 49 y/o female with what sounds like is adult onset asthma vs cough variant asthma, exacerbated by uncontrolled GERD 1. Increase PPI to BID. Will need this at discharge as well 2. Will start patient on BID pulmicort with a treatment for now 3. At discharge will need the inhaler form BID 4. Follow up with me in the office for jessica, 6 minute walk and repeat 2 view CXR. May also need allergy testing as well.
[2019-12-11] MEDS ORDERED: BUDESONIDE 0.5 MG/2 ML NEBU IH ONE (15:11)
--- NOTE | 2019-12-11 17:13 | Progress Note ---
Assessment and Plan Assessment and plan: Chest pain. Echocardiogram revealed LVEF that was normal at 50 to 55%. [facility] 12/2017: no significant CAD, EF well preserved. CTA of the chest negative. Evaluated by cardiology, non cardiac chest pain. Cardiology signed off Acute respiratory failure due to asthma Shortness of breath, worse on exertion Consulted Pulmonology , she was seen by Dr. Cabrera and he states patient likely has asthma Patient's twin sister has asthma, patient's daughters have asthma. start Albuterol scheduled, Pulmicort Right lower extremity leg pain. Bilateral lower extremity Dopplers negative for DVT. History of CVA with right-sided hemiparesis. PT/OT. Hypertension. Continue antihypertensive medications. Not discharged because still has shortness of breath History Interval history: Chest pain Still having Shortness of breath, worse on ambulation Hospitalist Physical - Physical exam Narrative exam: GEN: Not in acute distress, lying in bed, obese HEENT: Normocephalic, atraumatic, Neck: supple, No JVD Lungs: Clear to auscultation bilaterally, no wheeze, decreased breath sounds bilat heart;S1 and S2 reg, no murmurs Abd:soft, non tender, non distended, normal bowel sounds Ext: No edema, no clubbing, no cyanosis Neuro: AAO X 3, - Constitutional Vitals: Temp Pulse Resp BP Pulse Ox 98.6 F 58 L 18 105/65 99 12/11/19 16:30 12/11/19 16:30 12/11/19 16:30 12/11/19 16:30 12/11/19 16:30 General appearance: Present: no acute distress, obese ERICH score - Erich Score Age > 65: (0) No Aspirin use within the Past 7 Days: (0) No 3 or more CAD Risk Factors: (1) Yes 2 or more Angina events in past 24 hrs: (1) Yes Known CAD with more than 50% Stenosis: (0) No Elevated Cardiac Markers: (0) No ST Deviation Greater than 0.5mm: (0) No ERICH Score: 2 Results - Labs CBC & Chem 7: 12/09/19 06:38 12/09/19 06:38 Labs: Laboratory Last Values WBC 6.8 K/mm3 (4.5-11.0) 12/09/19 06:38 RBC 4.13 M/mm3 (3.65-5.03) 12/09/19 06:38 Hgb 12.0 gm/dl (10.1-14.3) 12/09/19 06:38 Hct 36.5 % (30.3-42.9) 12/09/19 06:38 MCV 89 fl (79-97) 12/09/19 06:38 MCH 29 pg (28-32) 12/09/19 06:38 MCHC 33 % (30-34) 12/09/19 06:38 RDW 14.0 % (13.2-15.2) 12/09/19 06:38 Plt Count 301 K/mm3 (140-440) 12/09/19 06:38 Lymph % (Auto) 27.8 % (13.4-35.0) 12/08/19 06:46 [place] % (Auto) 11.0 % (0.0-7.3) H 12/08/19 06:46 Eos % (Auto) 2.9 % (0.0-4.3) 12/08/19 06:46 Baso % (Auto) 1.3 % (0.0-1.8) 12/08/19 06:46 Lymph # 2.0 K/mm3 (1.2-5.4) 12/08/19 06:46 [place] # 0.8 K/mm3 (0.0-0.8) 12/08/19 06:46 Eos # 0.2 K/mm3 (0.0-0.4) 12/08/19 06:46 Baso # 0.1 K/mm3 (0.0-0.1) 12/08/19 06:46 Seg Neutrophils % 57.0 % (40.0-70.0) 12/08/19 06:46 Seg Neutrophils # 4.2 K/mm3 (1.8-7.7) 12/08/19 06:46 PT 13.9 Sec. (12.2-14.9) 12/09/19 06:38 INR 1.06 (0.87-1.13) 12/09/19 06:38 D-Dimer 447.49 ng/mlDDU (0-234) H 12/07/19 18:58 ABG pH 7.455 pH Units (7.350-7.450) H 12/11/19 12:20 ABG pCO2 42.7 mm Hg 12/11/19 12:20 ABG pO2 76.7 mm Hg (80.0-90.0) L 12/11/19 12:20 ABG HCO3 29.3 mmol/L (20.0-26.0) H 12/11/19 12:20 ABG O2 Saturation 97.0 % (95.0-99.0) 12/11/19 12:20 ABG O2 Content 12.1 (0.0-44) 12/11/19 12:20 ABG Base Excess 4.9 mmol/L (-2.0-3.0) H 12/11/19 12:20 ABG Hemoglobin 8.9 gm/dl (12.0-16.0) L 12/11/19 12:20 ABG Carboxyhemoglobin 1.3 % (0.0-5.0) 12/11/19 12:20 ABG Methemoglobin 0.5 % (0.0-1.5) 12/11/19 12:20 Oxyhemoglobin 95.3 % (95.0-99.0) 12/11/19 12:20 FiO2 21 % 12/11/19 12:20 Sodium 139 mmol/L (137-145) 12/09/19 06:38 Potassium 3.8 mmol/L (3.6-5.0) 12/09/19 06:38 Chloride 102.1 mmol/L (98-107) 12/09/19 06:38 Carbon Dioxide 24 mmol/L (22-30) 12/09/19 06:38 Anion Gap 17 mmol/L 12/09/19 06:38 BUN 10 mg/dL (7-17) 12/09/19 06:38 Creatinine 0.5 mg/dL (0.7-1.2) L 12/09/19 06:38 Estimated GFR > 60 ml/min 12/09/19 06:38 BUN/Creatinine Ratio 20 % 12/09/19 06:38 Glucose 97 mg/dL (65-100) 12/09/19 06:38 POC Glucose 92 (70-105) 12/08/19 22:15 Calcium 8.7 mg/dL (8.4-10.2) 12/09/19 06:38 Total Bilirubin 0.40 mg/dL (0.1-1.2) 12/07/19 18:25 AST 19 units/L (5-40) 12/07/19 18:25 ALT 19 units/L (7-56) 12/07/19 18:25 Alkaline Phosphatase 66 units/L (35-129) 12/07/19 18:25 Troponin T < 0.010 ng/mL (0.00-0.029) 12/08/19 06:46 NT-Pro-B Natriuret Pep 40.55 pg/mL (0-450) 12/07/19 18:25 Total Protein 8.4 g/dL (6.3-8.2) H 12/07/19 18:25 Albumin 4.1 g/dL (3.9-5) 12/07/19 18:25 Albumin/Globulin Ratio 1.0 % 12/07/19 18:25 Active Medications - Current Medications Current Medications: Generic Name Dose Route Start Last Admin Trade Name Freq PRN Reason Stop Dose Admin Acetaminophen 650 mg 12/08/19 00:39 12/09/19 21:42 Tylenol PO 650 mg Q4H PRN Administration Pain MILD(1-3)/Fever >100.5/DÍAZ Albuterol 2.5 mg 12/11/19 16:15 Proventil IH Q6HRT [facility] Amlodipine Besylate 10 mg 12/09/19 10:00 12/11/19 10:16 Amlodipine PO Not Given DAILY [facility] Aspirin 325 mg 12/09/19 10:00 12/11/19 10:09 Ecotrin PO 325 mg QDAY [facility] Administration Budesonide 0.5 mg 12/11/19 20:00 Pulmicort IH Q12HRT [facility] Furosemide 40 mg 12/09/19 06:00 12/11/19 05:52 Lasix PO 40 mg DAILY@0600 [facility] Administration Hydralazine HCl 25 mg 12/08/19 14:00 12/11/19 13:42 Apresoline PO Not Given Q8HR [facility] Isosorbide Dinitrate 20 mg 12/08/19 14:00 12/11/19 13:14 Isordil Titradose PO 20 mg Q8HR [facility] Administration Losartan Potassium 100 mg 12/09/19 10:00 12/11/19 10:12 Cozaar PO 100 mg QDAY [facility] Administration Metoprolol Tartrate 75 mg 12/08/19 22:00 12/11/19 10:13 Metoprolol PO 75 mg BID [facility] Administration Nitroglycerin 0.4 mg 12/08/19 00:39 Nitrostat SL Q5M PRN Chest Pain Ondansetron HCl 4 mg 12/08/19 00:39 Zofran IV Q8H PRN Nausea And Vomiting Pantoprazole Sodium 40 mg 12/11/19 22:00 Protonix PO BID [facility] Potassium Chloride 20 meq 12/09/19 10:00 12/11/19 10:13 K-Dur PO 20 meq QDAY [facility] Administration Senna 8.6 mg 12/08/19 12:46 12/09/19 21:48 Senokot PO 8.6 mg DAILY PRN Administration Constipation Sodium Chloride 10 ml 12/08/19 10:00 12/11/19 10:16 Sodium Chloride Flush Syringe 10 Ml IV 10 ml BID [facility] Administration Sodium Chloride 10 ml 12/08/19 00:39 Sodium Chloride Flush Syringe 10 Ml IV PRN PRN LINE FLUSH
[2019-12-11] MEDS: PANTOPRAZOLE 40 MG TAB PO SCH (21:03)
[2019-12-11] MEDS: ALBUTEROL 2.5 MG/3 ML NEBU IH SCH ×2 (21:10→21:11)
[2019-12-11] MEDS: BUDESONIDE 0.5 MG/2 ML NEBU IH SCH (21:11)
[2019-12-12] MEDS: HEPARIN 5,000 UNIT/1 ML VIAL SUB-Q SCH ×3 (01:21→13:24)
[2019-12-12] MEDS: ACETAMINOPHEN 325 MG TAB PO PRN (01:25)
[2019-12-12] MEDS: ALBUTEROL 2.5 MG/3 ML NEBU IH SCH ×3 (02:02→14:17)
[2019-12-12] MEDS: ISOSORBIDE DINITRATE 20 MG TAB PO SCH ×2 (06:26→13:24)
[2019-12-12] MEDS: FUROSEMIDE 40 MG TAB PO SCH (06:26)
[2019-12-12] MEDS: hydrALAZINE 25 MG TAB PO SCH ×2 (06:27→13:24)
[2019-12-12] MEDS: BUDESONIDE 0.5 MG/2 ML NEBU IH SCH (09:11)
[2019-12-12] MEDS: LOSARTAN 50 MG TAB PO SCH (09:55)
[2019-12-12] MEDS: ASPIRIN EC 325 MG TAB PO SCH (09:55)
[2019-12-12] MEDS: METOPROLOL TARTRATE 50 MG TAB PO SCH (09:56)
[2019-12-12] MEDS: POTASSIUM CHLORIDE ER 20 MEQ TAB PO SCH (09:56)
[2019-12-12] MEDS: PANTOPRAZOLE 40 MG TAB PO SCH (09:56)
[2019-12-12] MEDS: amLODIPine 10 MG TAB PO SCH (10:07)
--- NOTE | 2019-12-12 11:38 | Progress Note ---
Assessment and Plan 49 y/o female with what sounds like is adult onset asthma vs cough variant asthma, exacerbated by uncontrolled GERD 1. Increase PPI to BID. Will need this at discharge as well 2. Will start patient on BID pulmicort with a treatment for now 3. At discharge will need the inhaler form BID 4. Follow up with me in the office for jessica, 6 minute walk and repeat 2 view CXR. May also need allergy testing as well. 5. NO objection to discharge today from a lung standpoint. Subjective Date of service: 12/12/19 Interval history: Per patient feels better but states that she had a headache and chest pain after pulmicort treatment. Neither of these are on the side effect profile. Does feel like she is moving more air. Oxygen off and awaiting 6 minute walk. Objective Vital Signs - 12hr 12/11/19 12/12/19 12/12/19 23:45 01:58 03:47 Temperature Pulse Rate 67 57 L Pulse Rate [ Throughout] Respiratory 18 Rate Respiratory Rate [ Throughout] Blood Pressure 111/64 O2 Sat by Pulse 100 95 95 Oximetry 12/12/19 12/12/19 12/12/19 06:26 07:39 08:28 Temperature 98.0 F Pulse Rate 63 62 Pulse Rate [ Throughout] Respiratory 18 18 Rate Respiratory Rate [ Throughout] Blood Pressure 111/64 122/72 O2 Sat by Pulse 98 Oximetry 12/12/19 12/12/19 12/12/19 09:12 09:14 09:55 Temperature Pulse Rate 62 Pulse Rate [ 84 Throughout] Respiratory Rate Respiratory 16 Rate [ Throughout] Blood Pressure 122/72 O2 Sat by Pulse 96 Oximetry 12/12/19 09:56 Temperature Pulse Rate 62 Pulse Rate [ Throughout] Respiratory Rate Respiratory Rate [ Throughout] Blood Pressure 122/72 O2 Sat by Pulse Oximetry Constitutional: no acute distress, alert Eyes: non-icteric ENT: oropharynx moist Neck: supple, no lymphadenopathy Effort: normal Ascultation: Bilateral: diminished breath sounds (but no wheezing) Percussion: Bilateral: not dull Tactile fremitus: Bilateral: normal Cardiovascular: regular rate and rhythm Gastrointestinal: normoactive bowel sounds, soft Extremities: no cyanosis, no edema, pink and warm, pulses normal CBC and BMP: 12/09/19 06:38 12/09/19 06:38 ABG, PT/INR, D-dimer: ABG ABG pH 7.455 pH Units (7.350-7.450) H 12/11/19 12:20 ABG pCO2 42.7 mm Hg 12/11/19 12:20 ABG pO2 76.7 mm Hg (80.0-90.0) L 12/11/19 12:20 ABG O2 Saturation 97.0 % (95.0-99.0) 12/11/19 12:20 PT/INR, D-dimer PT 13.9 Sec. (12.2-14.9) 12/09/19 06:38 INR 1.06 (0.87-1.13) 12/09/19 06:38 D-Dimer 447.49 ng/mlDDU (0-234) H 12/07/19 18:58 Abnormal lab findings: Abnormal Labs 12/07/19 12/07/19 12/07/19 18:25 18:25 18:58 [place] % (Auto) 12.3 H [place] # 1.2 H D-Dimer 447.49 H ABG pH ABG pO2 ABG HCO3 ABG Base Excess ABG Hemoglobin Carbon Dioxide 20 L Creatinine Glucose 104 H Total Protein 8.4 H 12/08/19 12/08/19 12/09/19 06:46 06:46 06:38 [place] % (Auto) 11.0 H [place] # D-Dimer ABG pH ABG pO2 ABG HCO3 ABG Base Excess ABG Hemoglobin Carbon Dioxide 19 L Creatinine 0.6 L 0.5 L Glucose Total Protein 12/11/19 12:20 [place] % (Auto) [place] # D-Dimer ABG pH 7.455 H ABG pO2 76.7 L ABG HCO3 29.3 H ABG Base Excess 4.9 H ABG Hemoglobin 8.9 L Carbon Dioxide Creatinine Glucose Total Protein
[2019-12-12 12:52] VITALS: BP 132/84
--- NOTE | 2019-12-12 14:27 | Discharge Summary ---
Providers - Providers Date of Admission: 12/07/19 22:11 Date of discharge: 12/12/19 Attending physician: BENSON SURESH 12/08/19 Consult to Cardiac Rehabilitation [CONS] Routine Reason For Exam: Phase I 12/10/19 12:26 Consult to Physician [CONS] Routine Comment: Consulting Provider: MALIKA CABRERA Physician Instructions: Reason For Exam: shortness of breath 12/11/19 17:13 Consult to Dietitian/Nutrition [CONS] Routine Physician Instructions: Obesity, CHF Reason For Exam: Reason for Consult: Diet education Hospitalization Condition: Good Hospital course: Patient is a 49-year-old female with known history of coronary artery disease, hypertension, CHF, history of CVA with some residual right-sided weakness presented to the emergency room complained of chest pain and shortness of breath. Patient Gamal that she has been having progressive swelling of her lower extremities right more than the left. She also indicates that she has had a history of DVTs in the past. She has been following up with a game design instructor and also indicates that she was taken off her diuretic medication and placed on Lasix recently. She was seen and evaluated in ED and admitted. She was evaluated by cardiology who determined chest pain is non cardiac. She was also evaluated by Pulmonology for persistent shortness of breath, that was worse on exertion. She was diagnosed with likely asthma as per Pulmonology, and was started on Pulmicort. With nebulizer, Pulmicort, supplemental Oxygen she improved and was discharged home 12/12/19. Chest pain. Echocardiogram revealed LVEF that was normal at 50 to 55%. [facility] 12/2017: no significant CAD, EF well preserved. CTA of the chest negative. Evaluated by cardiology, non cardiac chest pain. Cardiology signed off Acute respiratory failure due to asthma exacerbation Shortness of breath, worse on exertion Consulted Pulmonology , she was seen by Dr. Cabrera and he states patient likely has asthma Patient's twin sister has asthma, patient's daughters have asthma. started Albuterol scheduled, Pulmicort. Discharge on Pulmicort Chronic diastolic CHF Right lower extremity leg pain. Bilateral lower extremity Dopplers negative for DVT. History of CVA with right-sided hemiparesis. PT/OT. Hypertension. Continue antihypertensive medications. Disposition: TO HOME OR SELFCARE - Discharge Diagnoses (1) Acute respiratory failure Status: Acute (2) Asthma exacerbation Status: Acute (3) Obesity (BMI 30.0-34.9) Status: Acute (4) Chest pain Status: Acute (5) Type II diabetes mellitus Status: Acute (6) Chronic diastolic CHF (congestive heart failure) Status: Chronic Core Measure Documentation - Palliative Care Palliative Care/ Comfort Measures: Not Applicable - Core Measures Any of the following diagnoses?: heart failure - Heart Failure Discharge Requirements DENISSE/ARB for LVSD if EF <40%: Not Applicable Beta shaji at discharge: No Reason for no beta shaji on DC: Bradycardia Exam - Constitutional Vitals: Temp Pulse Resp BP Pulse Ox 98.2 F 82 16 132/84 95 12/12/19 11:58 12/12/19 14:00 12/12/19 14:00 12/12/19 13:24 12/12/19 11:58 Plan Activity: advance as tolerated Diet: low fat, low cholesterol, low salt, other (Fluid restriction 2000 ml in 24 hrs) Plan of Treatment: 1.Follow up with PCP in 1 week. 2.Follow up with cardiology in 1 week. 3.Follow up with Rito Frances in 1 week Follow up with: ÁNGEL ROSARIO [Other] - 7 Days Prescriptions: Furosemide [Lasix TAB] 40 mg PO QDAY #30 tablet Albuterol Sulfate [Proair Digihaler] 90 mcg IH Q4H PRN #1 pump PRN Reason: Shortness Of Breath Pantoprazole [Protonix TAB] 40 mg PO BID #60 tablet Budesonide [Pulmicort Flexhaler] 90 mcg IH BID #1 aer.[email or web address]
== END 2019-12-12 17:16 | disposition home or self-care (01) ==
LOC: ED 17:29 → 4A 22:11
PROVIDERS: ADMIT Internal Medicine Geriatric Medicine; ATTEND Internal Medicine
DX: J96.00 Acute respiratory failure, unspecified whether with hypoxia or hypercapnia (principal); J45.901 Unspecified asthma with (acute) exacerbation; I25.5 Ischemic cardiomyopathy; I25.10 Atherosclerotic heart disease of native coronary artery without angina pectoris; I11.0 Hypertensive heart disease with heart failure; I50.32 Chronic diastolic (congestive) heart failure; R60.0 Localized edema; G62.9 Polyneuropathy, unspecified; F32.9 Major depressive disorder, single episode, unspecified; M79.604 Pain in right leg; E66.9 Obesity, unspecified; Z86.73 Personal history of transient ischemic attack (TIA), and cerebral infarction without residual deficits; Z88.5 Allergy status to narcotic agent; Z79.899 Other long term (current) drug therapy; Z68.33 Body mass index [BMI] 33.0-33.9, adult
CPT/HCPCS: 36415; 71045; 71275; 80048; 80053; 82803; 82962; 83880; 84484; 85025; 85027; 85379; 85610; 93005; 93010; 93306; 93970; 94640; 94660; 94760; 96372; 96374; 96375; 99284; C9113; G0378; J1644; J1940; J2270; J2405; Q9967